=== PATIENT | male | born 1990 | race Caucasian/White ===

== ENCOUNTER 2017-07-11 04:18 | Emergency (ER) | payer OTHER ==
[2017-07-11] MEDS ORDERED: IPRATROPIUM-ALBUTEROL 3 ML NEB INHALATION STA (05:10)
--- NOTE | 2017-07-11 05:13 | ED ---
General Adult HPI - General Chief complaint: Upper Respiratory Infection Stated complaint: Congestion Time Seen by Provider: 07/11/17 04:58 Source: patient, RN notes reviewed Mode of arrival: ambulatory Limitations: no limitations - History of Present Illness Initial comments: Patient is a pleasant 27-year-old male presenting to the emergency Department with cough and congestion. Symptoms have been present for the past 4-5 days. Patient has sinus and chest congestion. Patient does have occasional dry cough. Patient feels somewhat short of breath. Patient is a smoker. Patient does have a headache however has a history of chronic similar headaches. Patient has had several loose stools over the past few days. Patient states he has been able to orally hydrate himself and refuses lab/IV line. - Related Data Home Medications Medication Instructions Recorded Confirmed Gabapentin [Neurontin] 800 mg PO TID 07/11/17 07/11/17 Topiramate [Topamax] 25 mg PO DAILY 07/11/17 07/11/17 Previous Rx's Medication Instructions Recorded Albuterol Inhaler [Ventolin Hfa 2 puff INHALATION Q4HR PRN #1 07/11/17 Inhaler] inhaler Azithromycin [Zithromax Z-pack] 250 mg PO DIRECTED #6 tab 07/11/17 predniSONE 20 mg PO BID #10 tab 07/11/17 Allergies Allergy/AdvReac Type Severity Reaction Status Date / Time dextroamphetamine sulfate AdvReac Hallucinati Verified 12/29/15 14:19 [From Dexedrine] ons Review of Systems ROS Statement: Those systems with pertinent positive or pertinent negative responses have been documented in the HPI. ROS Other: All systems not noted in ROS Statement are negative. Constitutional: Denies: fever Eyes: Denies: eye pain ENT: Reports: congestion. Denies: ear pain Respiratory: Reports: cough, dyspnea Cardiovascular: Denies: chest pain Endocrine: Denies: fatigue Gastrointestinal: Denies: abdominal pain Genitourinary: Denies: urgency Musculoskeletal: Denies: back pain Skin: Denies: rash Neurological: Denies: weakness Past Medical History Past Medical History: No Reported History Additional Past Medical History / Comment(s): cardiac arrhythmia status post cardiac ablation in 2011 History of Any Multi-Drug Resistant Organisms: None Reported Past Surgical History: Hernia Repair Additional Past Surgical History / Comment(s): loop recorder placed, heart catheterization, cardiac ablation with Dr. Bhandari in 2012, extraction of impacted teeth, ORIF right hand third metacarpal phalangeal joint fracture. Past Anesthesia/Blood Transfusion Reactions: No Reported Reaction Past Psychological History: ADD/ADHD, Anxiety, Depression Smoking Status: Current every day smoker Past Alcohol Use History: None Reported Past Drug Use History: Marijuana - Past Family History Father Additional Family Medical History / Comment(s): father is 53 years of age and has basal cell skin cancer. Mother Additional Family Medical History / Comment(s): mother is 51 years of age and has problems with anxiety and chronic back pain. Brother(s) Additional Family Medical History / Comment(s): patient has 1 brother and 1 sister with no major medical problems. General Exam Limitations: no limitations General appearance: alert, in no apparent distress Head exam: Present: atraumatic Eye exam: Present: normal appearance, PERRL ENT exam: Present: normal oropharynx Neck exam: Present: normal inspection Respiratory exam: Present: wheezes. Absent: respiratory distress Cardiovascular Exam: Present: regular rate, normal rhythm GI/Abdominal exam: Present: soft. Absent: tenderness Extremities exam: Present: normal inspection. Absent: pedal edema, calf tenderness Neurological exam: Present: alert Psychiatric exam: Present: normal affect, normal mood Skin exam: Present: normal color Course Vital Signs 07/11/17 07/11/17 07/11/17 04:23 05:22 05:32 Temperature 96.9 F L Pulse Rate 95 92 96 Respiratory 18 Rate Blood Pressure 132/87 O2 Sat by Pulse 98 Oximetry 07/11/17 05:51 Temperature 98.0 F Pulse Rate 88 Respiratory 16 Rate Blood Pressure 142/64 O2 Sat by Pulse 100 Oximetry Medical Decision Making - Medical Decision Making Patient was reexamined and does feel somewhat better. Patient has some continued wheezing. Patient does not want another breathing treatment and does request discharge. - Radiology Data Radiology results: image reviewed (Chest x-ray shows no acute process) Disposition Clinical Impression: Asthmatic bronchitis Disposition: HOME SELF-CARE Condition: Stable Instructions: Acute Bronchitis (ED), Wheezing (ED) Additional Instructions: Please follow-up with primary care physician in the next day or 2 for recheck. Return for difficulty breathing, fevers, worsening symptoms or other concerns. Prescriptions: Albuterol Inhaler [Ventolin Hfa Inhaler] 2 puff INHALATION Q4HR PRN #1 inhaler PRN Reason: Dyspnea Azithromycin [Zithromax Z-pack] 250 mg PO DIRECTED #6 tab predniSONE 20 mg PO BID #10 tab Referrals: Tj Hernandez MD [Primary Care Provider] - 1-2 days Time of Disposition: 06:09
--- NOTE | 2017-07-11 05:23 | XR ---
EXAM: XR Chest, 2 Views CLINICAL HISTORY: Reason: cough TECHNIQUE: Frontal and lateral views of the chest. COMPARISON: No relevant prior studies available. FINDINGS: Lungs: Unremarkable. No consolidation. Pleural space: Unremarkable. No pneumothorax. Heart: Unremarkable. No cardiomegaly. Mediastinum: Unremarkable. Bones/joints: Unremarkable. Tubes, lines and devices: Loop recorder redemonstrated. IMPRESSION: No acute findings.
[2017-07-11 05:52] VITALS: BP 142/64; PULSE 88; RESP 16; TEMP 98
== END 2017-07-11 06:18 | disposition home or self-care (01) ==
LOC: EC 04:18
DX: J45.909 Unspecified asthma, uncomplicated (principal); R51 Headache; F41.9 Anxiety disorder, unspecified; F17.200 Nicotine dependence, unspecified, uncomplicated; Z79.899 Other long term (current) drug therapy; Z88.8 Allergy status to other drugs, medicaments and biological substances
CPT/HCPCS: 71020; 94640; 99283

== ENCOUNTER 2017-09-21 16:27 | Emergency (ER) | payer OTHER ==
--- NOTE | 2017-09-21 16:51 | ED ---
General Adult HPI - General Chief complaint: Seizure Stated complaint: Seizure Time Seen by Provider: 09/21/17 16:29 Source: patient, family, EMS, RN notes reviewed, old records reviewed Mode of arrival: EMS Limitations: no limitations - History of Present Illness Initial comments: Complaint history of present illness a 27-year-old male here with his significant other. The patient was brought emergency room by ambulance after having a seizure lasted approximately 3 minutes, it was tonic-clonic type seizure as witnessed by his significant other. The patient has had one other seizure prior to this. The patient did take pain medication i.e. tramadol today for chronic back pain. Is also been established that he was taking tramadol on his first seizure a year ago. Advised not to take any tramadol as it appears to be lowering his threshold for seizures. - Related Data Home Medications Medication Instructions Recorded Confirmed Gabapentin [Neurontin] 800 mg PO QID 07/11/17 09/21/17 traMADol HCL [Ultram] 50 mg PO Q6HR PRN 09/21/17 09/21/17 Allergies Allergy/AdvReac Type Severity Reaction Status Date / Time dextroamphetamine sulfate AdvReac Hallucinati Verified 09/21/17 17:07 [From Dexedrine] ons Review of Systems ROS Statement: Those systems with pertinent positive or pertinent negative responses have been documented in the HPI. Review of systems no visual acuity changes no headache at this time the chest pain shows breath GI/ problems. All systems reviewed were within normal limits. Past medical problems significant for seizure. One time prior to this. At that time he also was taking tramadol for chronic back pain. The patient has had a history of cardiac anomaly with cardiac arrhythmia and cardiac ablation with good results. Otherwise no other surgeries include right hand surgery. Family history grandfather had lung cancer. He has ALLERGIES to Dexadrine. He does smoke strings alcohol. ROS Other: All systems not noted in ROS Statement are negative. Past Medical History Past Medical History: Seizure Disorder Additional Past Medical History / Comment(s): cardiac arrhythmia status post cardiac ablation in 2011 History of Any Multi-Drug Resistant Organisms: None Reported Past Surgical History: Hernia Repair Additional Past Surgical History / Comment(s): loop recorder placed, heart catheterization, cardiac ablation with Dr. Bhandari in 2012, extraction of impacted teeth, ORIF right hand third metacarpal phalangeal joint fracture. Past Anesthesia/Blood Transfusion Reactions: No Reported Reaction Past Psychological History: ADD/ADHD, Anxiety, Depression Smoking Status: Current every day smoker Past Alcohol Use History: Daily Past Drug Use History: Marijuana - Past Family History Father Additional Family Medical History / Comment(s): father is 53 years of age and has basal cell skin cancer. Mother Additional Family Medical History / Comment(s): mother is 51 years of age and has problems with anxiety and chronic back pain. Brother(s) Additional Family Medical History / Comment(s): patient has 1 brother and 1 sister with no major medical problems. General Exam - General Exam Comments Initial Comments: General: The patient is awake and alert, in no distress, and does not appear acutely ill. Patient had a seizure just prior to coming to emergency room. Transferred here via EMS. Currently alert and oriented. The patient had taken several tramadol today because of his chronic back pain. Vital signs temperature 98.2 pulse 94 respiratory rate 18 pulse ox 96% room air blood pressure 147/91 Eye: Pupils are equal, round and reactive to light, extra-ocular movements are intact ; there is normal conjunctiva bilaterally. No signs of icterus. Ears, nose, mouth and throat: There are moist mucous membranes and no oral lesions. As a small bump on the right forehead that occurred 1 week ago after bumping into a wall. No loss of consciousness at that time. Neck: The neck is supple, there is no tenderness. Cardiovascular: There is a regular rate and rhythm. No murmur, rub or gallop is appreciated. Respiratory: Lungs are clear to auscultation, respirations are non-labored, breath sounds are equal. No wheezes, stridor, rales, or rhonchi. Gastrointestinal: Soft, non-distended, non-tender abdomen without masses or organomegaly noted. There is no rebound or guarding present. No CVA tenderness. Bowel sounds are unremarkable. Back: No back pain Musculoskeletal: Normal ROM, no tenderness, There is no pedal edema. There is no calf tenderness or swelling. Sensation intact. Neurological: CN II-XII intact, There are no obvious motor or sensory deficits. Coordination appears grossly intact. Speech is normal. No focal or lateralizing findings Skin: Skin is warm and dry and no rashes or lesions are noted. Psychiatric: Cooperative, appropriate mood & affect, normal judgment. History of bipolar disorder Limitations: no limitations Course Vital Signs 09/21/17 09/21/17 16:29 18:33 Temperature 98.2 F 98.1 F Pulse Rate 94 64 Respiratory 18 17 Rate Blood Pressure 147/91 129/77 O2 Sat by Pulse 96 99 Oximetry EKG Findings - EKG Comments: EKG Findings:: KG was done and reviewed at 1654 showing normal sinus rhythm no acute ST elevation no ectopy no ischemic changes. Rate 87. Eye was 138 QRS 106 QT [address] Wells Medical Decision Making - Medical Decision Making An EKG done which showed normal sinus rhythm rate 87. Patient remains alert emergency room neurologically intact no focal or lateralizing findings. We did discuss his not taking tramadol ever again because of its propensity for lowering threshold people might be prone to seizures. The patient was advised he cannot drive for 6 months, needs to be cleared by his family doctor or neurologist. Show white count of 8 hemoglobin 15 hematocrit 44, potassium 3.9. BUN 13 creatinine 0.8 the GFR greater than 60. Glucose 89. Breast discomfort while here. No changes. We discussed him not using tramadol in the future or other medications at lowering his threshold have seizures. Again reminded no driving for 6 months until cleared by his doctors. - Lab Data Result diagrams: 09/21/17 17:32 09/21/17 17:32 Lab Results 09/21/17 09/21/17 Range/Units 17:32 17:32 WBC 8.0 (3.8-10.6) k/uL RBC 4.75 (4.30-5.90) m/uL Hgb 15.0 (13.0-17.5) gm/dL Hct 44.1 (39.0-53.0) % MCV 92.9 (80.0-100.0) fL MCH 31.5 (25.0-35.0) pg MCHC 33.9 (31.0-37.0) g/dL RDW 14.3 (11.5-15.5) % Plt Count 177 (150-450) k/uL Neutrophils % 67 % Lymphocytes % 20 % Monocytes % 7 % Eosinophils % 5 % Basophils % 1 % Neutrophils # 5.4 (1.3-7.7) k/uL Lymphocytes # 1.6 (1.0-4.8) k/uL Monocytes # 0.6 (0-1.0) k/uL Eosinophils # 0.4 (0-0.7) k/uL Basophils # 0.1 (0-0.2) k/uL Sodium 136 L (137-145) mmol/L Potassium 3.9 (3.5-5.1) mmol/L Chloride 104 (98-107) mmol/L Carbon Dioxide 22 (22-30) mmol/L Anion Gap 10 mmol/L BUN 13 (9-20) mg/dL Creatinine 0.80 (0.66-1.25) mg/dL Est GFR (MDRD) Af Amer >60 (>60 ml/min/1.73 sqM) Est GFR (MDRD) Non-Af >60 (>60 ml/min/1.73 sqM) Glucose 89 (74-99) mg/dL Calcium 9.1 (8.4-10.2) mg/dL Total Bilirubin 0.3 (0.2-1.3) mg/dL AST 31 (17-59) U/L ALT 35 (21-72) U/L Alkaline Phosphatase 68 (38-126) U/L Total Protein 6.7 (6.3-8.2) g/dL Albumin 4.4 (3.5-5.0) g/dL Disposition Clinical Impression: Seizure Disposition: HOME SELF-CARE Condition: Stable Instructions: Nonepileptic Seizures (ED) Additional Instructions: Not taking tramadol or any medications that lower your threshold to have a seizure. Follow-up with your family physician. Do not drive for 6 months until cleared Referrals: Tj Hernandez MD [Primary Care Provider] - 1-2 days Time of Disposition: 19:29
[2017-09-21 17:42] LABS: Basophils # (A) 0.1 k/uL (0-0.2); Basophils % (A) 1 %; CH 32.1; CHCM 34.7; Eosinophils # (A) 0.4 k/uL (0-0.7); Eosinophils % (A) 5 %; HCT 44.1 % (39.0-53.0); HDW 2.31; Luc # (Auto) 0.09; Luc % (Auto) 1; Lymphocytes # (A) 1.6 k/uL (1.0-4.8); Lymphocytes % (A) 20 %; MCH 31.5 pg (25.0-35.0); MCHC 33.9 g/dL (31.0-37.0); MCV 92.9 fL (80.0-100.0); Mean Platelet Volume 7.8; Monocytes # (A) 0.6 k/uL (0-1.0); Monocytes % (A) 7 %; Neutrophils # (A) 5.4 k/uL (1.3-7.7); Neutrophils % (A) 67 %; RBC 4.75 m/uL (4.30-5.90); RDW 14.3 % (11.5-15.5); WBC (Perox) 8.41
[2017-09-21 18:01] LABS: ALT 35 U/L (21-72); AST 31 U/L (17-59); Alkaline Phosphatase 68 U/L (38-126); Anion Gap 10 mmol/L; Blood Urea Nitrogen 13 mg/dL (9-20); Calcium 9.1 mg/dL (8.4-10.2); Carbon Dioxide 22 mmol/L (22-30); Chloride 104 mmol/L (98-107); Glucose 89 mg/dL (74-99); Non-African American GFR(MDRD) >60 (>60 ml/min/1.73 sqM); Potassium 3.9 mmol/L (3.5-5.1); Sodium 136 mmol/L (137-145); Total Bilirubin 0.3 mg/dL (0.2-1.3); Total Protein 6.7 g/dL (6.3-8.2)
[2017-09-21 19:30] VITALS: BP 122/84; PULSE 63; RESP 18; TEMP 98.5
== END 2017-09-21 19:41 | disposition home or self-care (01) ==
LOC: EC 16:27
DX: G40.909 Epilepsy, unspecified, not intractable, without status epilepticus (principal); F41.9 Anxiety disorder, unspecified; F17.200 Nicotine dependence, unspecified, uncomplicated; Z79.899 Other long term (current) drug therapy; Z88.8 Allergy status to other drugs, medicaments and biological substances
CPT/HCPCS: 36415; 80053; 85025; 93005; 99285

== ENCOUNTER 2019-11-12 12:24 | Emergency (ER) | payer SELFPAY ==
[2019-11-12 12:33] VITALS: RESP 20; TEMP 97.8
[2019-11-12 13:07] LABS: Basophils % (A) 0 %; Eosinophils # (A) 0.1 k/uL (0-0.7); Eosinophils % (A) 2 %; HCT 44.7 % (39.0-53.0); HGB 14.7 gm/dL (13.0-17.5); Lymphocytes # (A) 1.8 k/uL (1.0-4.8); Lymphocytes % (A) 30 %; MCV 94.1 fL (80.0-100.0); Mean Platelet Volume 9.1; Monocytes # (A) 0.4 k/uL (0-1.0); Monocytes % (A) 6 %; Neutrophils # (A) 3.6 k/uL (1.3-7.7); Neutrophils % (A) 60 %; Platelet Count 159 k/uL (150-450); RBC 4.75 m/uL (4.30-5.90); RDW 12.7 % (11.5-15.5); WBC 6.1 k/uL (3.8-10.6)
--- NOTE | 2019-11-12 13:07 | ED ---
General Adult HPI - General Chief complaint: Seizure Stated complaint: seizure Time Seen by Provider: 11/12/19 12:25 Source: patient, EMS, RN notes reviewed, old records reviewed Mode of arrival: EMS Limitations: no limitations - History of Present Illness Initial comments: This is a 29-year-old male who presents emergency Department with a past medical history significant for seizures. Patient states he was in the backseat of a car when he was told later that he had a seizure. Patient states she's had 3 seizures in the last 2 years. Patient states they've never found a cause per patient states he does not follow up with a neurologist his primary medical care doctor has him on Neurontin. Patient denies any recent fever chills cough or illness. Patient denies any nausea vomiting. Patient states currently he has no symptoms whatsoever he feels back to his baseline. Patient denies any head trauma recently. Patient denies any illegal drug use. Patient has no complaint currently according to EMS he was postictal when he arrived. - Related Data Home Medications Medication Instructions Recorded Confirmed Gabapentin [Neurontin] 800 mg PO TID 07/11/17 11/12/19 Butalb/Asprin/Caff 50-325-40Mg 1 cap PO TID PRN 11/12/19 11/12/19 [Fiorinal 50-325-40 MG] Allergies Allergy/AdvReac Type Severity Reaction Status Date / Time dextroamphetamine sulfate AdvReac Hallucinati Verified 11/12/19 13:35 [From Dexedrine] ons Review of Systems ROS Statement: Those systems with pertinent positive or pertinent negative responses have been documented in the HPI. ROS Other: All systems not noted in ROS Statement are negative. Past Medical History Past Medical History: Seizure Disorder Additional Past Medical History / Comment(s): cardiac arrhythmia status post cardiac ablation in 2012 History of Any Multi-Drug Resistant Organisms: None Reported Past Surgical History: Hernia Repair Additional Past Surgical History / Comment(s): loop recorder placed, heart catheterization, cardiac ablation with Dr. Bhandari in 2012, extraction of impacted teeth, ORIF right hand third metacarpal phalangeal joint fracture. Past Anesthesia/Blood Transfusion Reactions: No Reported Reaction Past Psychological History: ADD/ADHD, Anxiety, Depression Smoking Status: Current every day smoker Past Alcohol Use History: Daily Past Drug Use History: None Reported - Past Family History Father Additional Family Medical History / Comment(s): father is 53 years of age and has basal cell skin cancer. Mother Additional Family Medical History / Comment(s): mother is 51 years of age and has problems with anxiety and chronic back pain. Brother(s) Additional Family Medical History / Comment(s): patient has 1 brother and 1 sister with no major medical problems. General Exam - General Exam Comments Initial Comments: GENERAL: Patient is well-developed and well-nourished. Patient is nontoxic and well- hydrated and is in mild distress. ENT: Neck is soft and supple. No significant lymphadenopathy is noted. Oropharynx is clear. Moist mucous membranes. EYES: The sclera were anicteric and conjunctiva were pink and moist. Extraocular movements were intact and pupils were equal round and reactive to light. Eyelids were unremarkable. PULMONARY: Unlabored respirations. Good breath sounds bilaterally. No audible rales rhonchi or wheezing was noted. CARDIOVASCULAR: There is a regular rate and rhythm without any murmurs gallops or rubs. ABDOMEN: Soft and nontender with normal bowel sounds. SKIN: Skin is clear with no lesions or rashes and otherwise unremarkable. NEUROLOGIC: Patient is alert and oriented x3. Cranial nerves II through XII are grossly intact. Motor and sensory are also intact. Normal speech, volume and content. Symmetrical smile. MUSCULOSKELETAL: Normal extremities with adequate strength and full range of motion. LYMPHATICS: No significant lymphadenopathy is noted PSYCHIATRIC: Normal psychiatric evaluation. Limitations: no limitations Course Vital Signs 11/12/19 12:29 Temperature 97.8 F Pulse Rate 104 H Respiratory 20 Rate Blood Pressure 135/86 O2 Sat by Pulse 99 Oximetry Medical Decision Making - Medical Decision Making Patient remained at his baseline and had no more seizures in the emergency department. - Lab Data Result diagrams: 11/12/19 12:39 11/12/19 12:39 Lab Results 11/12/19 11/12/19 Range/Units 12:39 12:39 WBC 6.1 (3.8-10.6) k/uL RBC 4.75 (4.30-5.90) m/uL Hgb 14.7 (13.0-17.5) gm/dL Hct 44.7 (39.0-53.0) % MCV 94.1 (80.0-100.0) fL MCH 31.0 (25.0-35.0) pg MCHC 33.0 (31.0-37.0) g/dL RDW 12.7 (11.5-15.5) % Plt Count 159 (150-450) k/uL Neutrophils % 60 % Lymphocytes % 30 % Monocytes % 6 % Eosinophils % 2 % Basophils % 0 % Neutrophils # 3.6 (1.3-7.7) k/uL Lymphocytes # 1.8 (1.0-4.8) k/uL Monocytes # 0.4 (0-1.0) k/uL Eosinophils # 0.1 (0-0.7) k/uL Basophils # 0.0 (0-0.2) k/uL Sodium 139 (137-145) mmol/L Potassium 4.1 (3.5-5.1) mmol/L Chloride 104 (98-107) mmol/L Carbon Dioxide 19 L (22-30) mmol/L Anion Gap 16 mmol/L BUN 8 L (9-20) mg/dL Creatinine 0.78 (0.66-1.25) mg/dL Est GFR (CKD-EPI)AfAm >90 (>60 ml/min/1.73 sqM) Est GFR (CKD-EPI)NonAf >90 (>60 ml/min/1.73 sqM) Glucose 118 H (74-99) mg/dL Calcium 9.2 (8.4-10.2) mg/dL Total Bilirubin 0.5 (0.2-1.3) mg/dL AST 28 (17-59) U/L ALT 22 (4-49) U/L Alkaline Phosphatase 59 (38-126) U/L Total Protein 6.5 (6.3-8.2) g/dL Albumin 4.4 (3.5-5.0) g/dL Disposition Clinical Impression: Generalized seizure Disposition: HOME SELF-CARE Instructions (If sedation given, give patient instructions): Recurrent Seizures in Adults (ED) Additional Instructions: Patient should follow-up with a neurologist. Is patient prescribed a controlled substance at d/c from ED?: No Referrals: Tj Hernandez MD [Primary Care Provider] - 1-2 days Time of Disposition: 13:41
[2019-11-12 13:16] LABS: AST 28 U/L (17-59); African American GFR (CKD) >90 (>60 ml/min/1.73 sqM); Albumin 4.4 g/dL (3.5-5.0); Alkaline Phosphatase 59 U/L (38-126); Anion Gap 16 mmol/L; Blood Urea Nitrogen 8 mg/dL (9-20); Calcium 9.2 mg/dL (8.4-10.2); Carbon Dioxide 19 mmol/L (22-30); Chloride 104 mmol/L (98-107); Glucose 118 mg/dL (74-99); Non-African American GFR(CKD) >90 (>60 ml/min/1.73 sqM); Potassium 4.1 mmol/L (3.5-5.1); Sodium 139 mmol/L (137-145); Total Bilirubin 0.5 mg/dL (0.2-1.3); Total Protein 6.5 g/dL (6.3-8.2)
[2019-11-12 13:22] LABS: ALT 22 U/L (4-49)
[2019-11-12 14:13] VITALS: BP 128/75; PULSE 92
== END 2019-11-12 14:16 | disposition home or self-care (01) ==
LOC: EC 12:24
DX: G40.909 Epilepsy, unspecified, not intractable, without status epilepticus (principal); F17.200 Nicotine dependence, unspecified, uncomplicated; Z79.899 Other long term (current) drug therapy; Z88.8 Allergy status to other drugs, medicaments and biological substances
CPT/HCPCS: 36415; 80053; 85025; 99284

== ENCOUNTER 2020-07-26 23:32 | Inpatient (IN) | payer BC, OTHER ==
[2020-07-26] MEDS ORDERED: NALOXONE 0.4 MG/ML 1 ML VIAL IVP STA (23:34)
--- NOTE | 2020-07-26 23:43 | ED ---
Overdose HPI - General Stated Complaint: poss Overdose Time Seen by Provider: 07/26/20 23:34 - History of Present Illness Initial Comments: Cameron is a 30-year-old male with extensive history of drug use, alcohol use in trouble with the law. The patient presents the ER today as an overdose. Father reports that the patient was previously incarcerated and theoretically had not been using drugs or alcohol, states that he got out of [facility] months ago. He from his and 3 months ago began drinking heavily and using Kratom. Father reports that today he was called and the patient was at a gas station, had apparently been drinking heavily. Father reports that by the time he got to the patient the patient was minimally responsive snoring. Cannot provide much history. Father brought him immediately to the hospital. - Related Data Home Medications Medication Instructions Recorded Confirmed Gabapentin [Neurontin] 800 mg PO TID 07/11/17 11/12/19 Butalb/Asprin/Caff 50-325-40Mg 1 cap PO TID PRN 11/12/19 11/12/19 [Fiorinal 50-325-40 MG] Allergies Allergy/AdvReac Type Severity Reaction Status Date / Time dextroamphetamine sulfate AdvReac Hallucinati Verified 11/12/19 13:35 [From Dexedrine] ons Review of Systems ROS Statement: Those systems with pertinent positive or pertinent negative responses have been documented in the HPI. ROS Other: All systems not noted in ROS Statement are negative. Past Medical History Past Medical History: Seizure Disorder Additional Past Medical History / Comment(s): cardiac arrhythmia status post cardiac ablation in 2011 History of Any Multi-Drug Resistant Organisms: None Reported Past Surgical History: Hernia Repair Additional Past Surgical History / Comment(s): loop recorder placed, heart catheterization, cardiac ablation with Dr. Bhandari in 2012, extraction of impacted teeth, ORIF right hand third metacarpal phalangeal joint fracture. Past Anesthesia/Blood Transfusion Reactions: No Reported Reaction Past Psychological History: ADD/ADHD, Anxiety, Depression Past Alcohol Use History: Daily Past Drug Use History: None Reported - Past Family History Father Additional Family Medical History / Comment(s): father is 53 years of age and naranjo s basal cell skin cancer. Mother Additional Family Medical History / Comment(s): mother is 51 years of age and has problems with anxiety and chronic back pain. Brother(s) Additional Family Medical History / Comment(s): patient has 1 brother and 1 sister with no major medical problems. General Exam - General Exam Comments Initial Comments: Physical Exam GENERAL: Minimally responsive to painful stimuli Non verbal HENT: Normocephalic, Atraumatic. EYES: PERRL, EOMI Puupils 3mm reactive PULMONARY: Respiratory depression Unlabored respirations Expiratory wheezing CARDIOVASCULAR: There is a regular rate and rhythm without any murmurs gallops or rubs. Loop recorder in place in left chest wall ABDOMEN: Soft and nontender with normal bowel sounds. SKIN: Skin is clear with no lesions or rashes and otherwise unremarkable. : Deferred NEUROLOGIC: Alert to self MUSCULOSKELETAL: No obvious deformity PSYCHIATRIC: Unable to assess Course Vital Signs 07/26/20 07/26/20 07/27/20 23:33 23:37 00:27 Temperature 97.4 F L Pulse Rate 88 82 Respiratory 14 14 18 Rate Blood Pressure 123/88 117/73 O2 Sat by Pulse 98 92 L Oximetry 07/27/20 01:04 Temperature Pulse Rate 77 Respiratory 16 Rate Blood Pressure 100/70 O2 Sat by Pulse 93 L Oximetry Procedures - Bates Protocol (Time Out) Procedure Performed:: intubation Performing Provider: Ruth Guevara Nurse: Ruth Fritz Timeout Date: 07/27/20 Timeout Time: 01:15 Patient Identification (2 identifiers required): Chart, Arm Band Final Confirmation: Procedure, Patient Position - Intubation Sedative: Etomidate Paralytic: Rocuronium Laryngoscope: Martinez Size: 4 ET Tube Size: 8 ET Tube Uncuffed: No Tube Secured Depth (cm): 22 Tube Secured Location: teeth Tube Placement Confirmation: visualized tube passing through cords, equal breath sounds bilaterally, no breath sounds over epigastrium, confirmation by capnometry Patient Tolerated Procedure: well, no complications Intubation Complications: none Medical Decision Making - Medical Decision Making The patient was seen and evaluated upon arrival the emergency department Patient was minimally responsive with the mild respiratory depression, was given Narcan with no improvement Patient placed on supplemental oxygen labs EKG ordered EKG is nonischemic no signs of arrhythmia Labs with no significant abnormalities urine drug screen was only marijuana noted as well as significantly elevated alcohol level Patient care was discussed with poison control who recommends monitoring her respiratory status Decision was made to intubate the patient due to persistent respiratory depression concern for decompensation Patient care was discussed with Dr. Soriano who accepts admission Patient care was discussed with Dr. Steven who accepts the patient to the ICU for overdose requiring intubation - Lab Data Result diagrams: 07/26/20 23:40 07/26/20 23:40 Lab Results 07/26/20 07/26/20 07/26/20 Range/Units 23:40 23:40 23:40 WBC 6.7 (3.8-10.6) k/uL RBC 4.63 (4.30-5.90) m/uL Hgb 14.5 (13.0-17.5) gm/dL Hct 44.0 (39.0-53.0) % MCV 94.9 (80.0-100.0) fL MCH 31.2 (25.0-35.0) pg MCHC 32.9 (31.0-37.0) g/dL RDW 13.5 (11.5-15.5) % Plt Count 186 (150-450) k/uL Neutrophils % 56 % Lymphocytes % 33 % Monocytes % 5 % Eosinophils % 3 % Basophils % 1 % Neutrophils # 3.7 (1.3-7.7) k/uL Lymphocytes # 2.2 (1.0-4.8) k/uL Monocytes # 0.3 (0-1.0) k/uL Eosinophils # 0.2 (0-0.7) k/uL Basophils # 0.1 (0-0.2) k/uL Sodium 143 (137-145) mmol/L Potassium 4.0 (3.5-5.1) mmol/L Chloride 110 H (98-107) mmol/L Carbon Dioxide 26 (22-30) mmol/L Anion Gap 7 mmol/L BUN 10 (9-20) mg/dL Creatinine 0.89 (0.66-1.25) mg/dL Est GFR (CKD-EPI)AfAm >90 (>60 ml/min/1.73 sqM) Est GFR (CKD-EPI)NonAf >90 (>60 ml/min/1.73 sqM) Glucose 105 H (74-99) mg/dL Calcium 8.4 (8.4-10.2) mg/dL Total Bilirubin 0.3 (0.2-1.3) mg/dL AST 34 (17-59) U/L ALT 24 (4-49) U/L Alkaline Phosphatase 72 (38-126) U/L Total Protein 6.4 (6.3-8.2) g/dL Albumin 4.4 (3.5-5.0) g/dL Salicylates <1.0 mg/dL Urine Opiates Screen Not Detected (NotDetected) Ur Oxycodone Screen Not Detected (NotDetected) Urine Methadone Screen Not Detected (NotDetected) Ur Propoxyphene Screen Not Detected (NotDetected) Acetaminophen <10.0 ug/mL Ur Barbiturates Screen Not Detected (NotDetected) U Tricyclic Antidepress Not Detected (NotDetected) Ur Phencyclidine Scrn Not Detected (NotDetected) Ur Amphetamines Screen Not Detected (NotDetected) U Methamphetamines Scrn Not Detected (NotDetected) U Benzodiazepines Scrn Not Detected (NotDetected) Urine Cocaine Screen Not Detected (NotDetected) U Marijuana (THC) Screen Detected H (NotDetected) Serum Alcohol 244 H* mg/dL Critical Care Time Critical Care Time: Yes Total Critical Care Time: 30 Critical Care Time: Critical Care Time 30 min Critical care time was exclusive of separately billable procedures and treating other patients and teaching time. Critical care was necessary to treat or prevent imminent or life-threatening deterioration. Given the critical condition in which the patient arrived, the patient was immediately assessed by myself and the nurse, and cardiac monitoring initiated due to the potential for rapid decompensation of the patient's clinical condition. During the course of the patients stay, I spent a considerable amount of time at the bedside performing serial re-evaluations of the patient's hemodynamic and clinical status because of the recognized potential threat to life or limb in this condition. I then had a chance to review not only all of the available current laboratory and radiographic studies obtained today, but I also reviewed old records available to me at the time. Additionally, any ancillary information available including extract operator records were reviewed. Sequential vital signs were obtained. Disposition Clinical Impression: Polysubstance overdose, Respiratory depression Disposition: ADMITTED IP TO THIS [facility] Condition: Critical Is patient prescribed a controlled substance at d/c from ED?: No Referrals: None,Stated [Primary Care Provider] - 1-2 days
[2020-07-26 23:51] LABS: Basophils # (A) 0.1 k/uL (0-0.2); Basophils % (A) 1 %; Eosinophils # (A) 0.2 k/uL (0-0.7); Eosinophils % (A) 3 %; HGB 14.5 gm/dL (13.0-17.5); Lymphocytes # (A) 2.2 k/uL (1.0-4.8); Lymphocytes % (A) 33 %; MCH 31.2 pg (25.0-35.0); MCHC 32.9 g/dL (31.0-37.0); MCV 94.9 fL (80.0-100.0); Mean Platelet Volume 7.1; Monocytes # (A) 0.3 k/uL (0-1.0); Monocytes % (A) 5 %; Neutrophils # (A) 3.7 k/uL (1.3-7.7); Neutrophils % (A) 56 %; Platelet Count 186 k/uL (150-450); RBC 4.63 m/uL (4.30-5.90); RDW 13.5 % (11.5-15.5); WBC 6.7 k/uL (3.8-10.6)
[2020-07-27 00:01] LABS: ALT 24 U/L (4-49); AST 34 U/L (17-59); Acetaminophen <10.0 ug/mL; African American GFR (CKD) >90 (>60 ml/min/1.73 sqM); Albumin 4.4 g/dL (3.5-5.0); Amphetamine Screen,Urine Not Detected (NotDetected); Anion Gap 7 mmol/L; Benzodiazepines Screen,Urine Not Detected (NotDetected); Blood Urea Nitrogen 10 mg/dL (9-20); Calcium 8.4 mg/dL (8.4-10.2); Carbon Dioxide 26 mmol/L (22-30); Chloride 110 mmol/L (98-107); Cocaine Screen,Urine Not Detected (NotDetected); Non-African American GFR(CKD) >90 (>60 ml/min/1.73 sqM); Opiate Screen,Urine Not Detected (NotDetected); Phencyclidine Screen,Urine Not Detected (NotDetected); Sodium 143 mmol/L (137-145); Total Bilirubin 0.3 mg/dL (0.2-1.3); Total Protein 6.4 g/dL (6.3-8.2); Urn Cannabinoid Scrn Detected (NotDetected)
[2020-07-27 00:02] LABS: Barbiturate Screen,Urine Not Detected (NotDetected); Methadone Screen, Urine Not Detected (NotDetected); Oxycodone Screen, Urine Not Detected (NotDetected); Tricyclic Antidepressant,Urine Not Detected (NotDetected)
[2020-07-27 00:12] LABS: Alkaline Phosphatase 72 U/L (38-126); Glucose 105 mg/dL (74-99); Salicylate <1.0 mg/dL
[2020-07-27 00:16] LABS: Alcohol 244 mg/dL
[2020-07-27] MEDS ORDERED: ETOMIDATE 2 MG/ML 10 ML VIAL IVP STA (00:52)
[2020-07-27] MEDS ORDERED: MIDAZOLAM 1 MG/ML 5 ML VIAL IV PRN (00:52)
[2020-07-27] MEDS ORDERED: ROCURONIUM 10 MG/ML (5 ML VIAL) IV ONE (00:52)
[2020-07-27] MEDS ORDERED: fentaNYL (PF) 1,000 MCG in SODIUM CHLORIDE 0.9% 80 ML IV SCH (01:00)
[2020-07-27] MEDS ORDERED: ALBUTEROL NEBULIZED 2.5 MG/3 ML INHALATION STA (01:16)
[2020-07-27] MEDS ORDERED: NALOXONE 0.4 MG/ML 1 ML VIAL IV PRN (01:21)
[2020-07-27] MEDS ORDERED: SODIUM CHLORIDE 0.9% 1,000 ML IV SCH (01:30)
--- NOTE | 2020-07-27 01:36 | XR ---
EXAMINATION TYPE: XR chest 1V DATE OF EXAM: 07/27/2020 COMPARISON: 07/11/2017 HISTORY: Intubation TECHNIQUE: Single view FINDINGS: Endotracheal tube is 3.5 cm from the jaylin. There is nasogastric tube in the gastric fundu s. Lungs are clear of consolidation. There is no heart failure. Heart size is normal. IMPRESSION: No active cardiopulmonary disease. Normal heart. No adverse change.
[2020-07-27] MEDS ORDERED: MIDAZOLAM 1 MG/ML 5 ML VIAL IV STA (02:05)
[2020-07-27 02:12] LABS: ABG Base Excess -1.8 mmol/L; ABG HCO3 25 mmol/L (21-25); ABG Oxygen Saturation 99.4 % (94-97); ABG PCO2 57 mmHg (35-45); ABG PH 7.26 (7.35-7.45); ABG PO2 >400 mmHg (83-108); ABG TCO2 27 mmol/L (19-24); Allen Test Performed? Yes
[2020-07-27] MEDS ORDERED: SODIUM CHLORIDE 0.9% 1,000 ML with MVI, ADULT NO.4 WITH VIT K 10 ML, THIAMINE 100 MG, F... IV ONE ×4 (03:17)
--- NOTE | 2020-07-27 03:19 | P.HPIM ---
History of Present Illness H&P Date: 07/27/20 The patient is a 30-year-old male with a PMH of EtOH abuse and polysubstance abuse who was brought into the ED via EMS after an overdose. History obtained from the ED RN and the chart since patient intubated at time of examination. Reportedly, the patient's father picked him up outside of a [employer] after the staff contacted him when the patient was found unconscious. He subsequently called EMS when he found his son minimally responsive. He told the ED staff that the patient had been drinking heavily over the past 3 months after he split from his and one child. He reported the patient has been using Kratom (OTC Supplement) known to have stimulant properties with sedating effects at higher doses. In the emergency room, the patient was lethargic with an EtOH level of 244. He was subsequently intubated. Chest x-ray was unremarkable. Review of Systems ROS unobtainable: due to endotracheal tube Past Medical History Past Medical History: Seizure Disorder Additional Past Medical History / Comment(s): cardiac arrhythmia status post cardiac ablation in 2011 History of Any Multi-Drug Resistant Organisms: None Reported Past Surgical History: Hernia Repair Additional Past Surgical History / Comment(s): loop recorder placed, heart catheterization, cardiac ablation with Dr. Bhandari in 2012, extraction of impacted teeth, ORIF right hand third metacarpal phalangeal joint fracture. Past Anesthesia/Blood Transfusion Reactions: No Reported Reaction Past Psychological History: ADD/ADHD, Anxiety, Depression Past Alcohol Use History: Daily Past Drug Use History: None Reported - Past Family History Father Additional Family Medical History / Comment(s): father is 53 years of age and has basal cell skin cancer. Mother Additional Family Medical History / Comment(s): mother is 51 years of age and has problems with anxiety and chronic back pain. Brother(s) Additional Family Medical History / Comment(s): patient has 1 brother and 1 sister with no major medical problems. Medications and Allergies Home Medications Medication Instructions Recorded Confirmed Type Gabapentin [Neurontin] 800 mg PO TID 07/11/17 11/12/19 History Butalb/Asprin/Caff 50-325-40Mg 1 cap PO TID PRN 11/12/19 11/12/19 History [Fiorinal 50-325-40 MG] Allergies Allergy/AdvReac Type Severity Reaction Status Date / Time dextroamphetamine sulfate AdvReac Hallucinati Verified 11/12/19 13:35 [From Dexedrine] ons Physical Exam Vitals: Vital Signs Temp Pulse Resp BP Pulse Ox 07/27/20 02:15 72 16 104/74 100 07/27/20 01:26 80 07/27/20 01:04 77 16 100/70 93 L 07/27/20 00:27 82 18 117/73 92 L 07/26/20 23:37 14 07/26/20 23:33 97.4 F L 88 14 123/88 98 Intake and Output 07/26/20 07/26/20 07/27/20 14:59 22:59 06:59 Other: Weight 65.771 kg General: Intubated male, disheveled, no distress, appears at stated age, normal weight Derm: no unusual rashes/lesions no unusual ecchymoses, warm, dry Head: atraumatic, normocephalic, symmetric Eyes: anicteric sclera, pupils equal round reactive to light ENT: Nose and ears atraumatic Neck: No thyromegaly, no cervical lymphadenopathy, trachea midline, supple Mouth: no lip lesion Cardiovascular: S1S2 reg, no murmur, positive posterior tibial pulse bilateral, no edema, capillary refill less than 2 seconds Lungs: CTA bilateral, no rhonchi, no rales Abdominal: soft, no appreciable organomegaly Ext: no gross muscle atrophy, no contractures, Neuro: Unable to perform, patient unresponsive to noxious stimuli Results CBC & Chem 7: 07/26/20 23:40 07/26/20 23:40 Labs: Abnormal Lab Results - Last 24 Hours (Table) 07/26/20 07/26/20 07/27/20 Range/Units 23:40 23:40 02:11 ABG pH 7.26 L (7.35-7.45) ABG pCO2 57 H (35-45) mmHg ABG pO2 >400 H (83-108) mmHg ABG Total CO2 27 H (19-24) mmol/L ABG O2 Saturation 99.4 H (94-97) % Chloride 110 H (98-107) mmol/L Glucose 105 H (74-99) mg/dL U Marijuana (THC) Screen Detected H (NotDetected) Serum Alcohol 244 H* mg/dL Assessment and Plan Plan: Altered mental status with hypoxic respiratory failure likely secondary to combination of Kratom overdose and EtOH intoxication -Poison control notified -- recommended continued monitoring with no Kratom antidote currently available -Admitted to medical ICU -Continue with ventilator bundle -Monitor for alcohol withdrawal -Banana bag -Monitor electrolytes levels daily -Obtain EKG -Cardiac monitoring DVT prophylaxis -Heparin subq Anticipated discharge date: 2-[address]: Home A total of 40 minutes was spent on the care of this complex patient more than 50% of the time was spent in counseling and care coordination.
[2020-07-27 03:37] LABS: Glucose,Whole Blood 106 mg/dL (75-99)
[2020-07-27 05:33] LABS: Basophils % (A) 1 %; Eosinophils # (A) 0.1 k/uL (0-0.7); Eosinophils % (A) 3 %; HCT 38.9 % (39.0-53.0); HGB 13.3 gm/dL (13.0-17.5); Lymphocytes % (A) 44 %; MCH 33.2 pg (25.0-35.0); MCHC 34.3 g/dL (31.0-37.0); MCV 96.8 fL (80.0-100.0); Mean Platelet Volume 8.3; Monocytes # (A) 0.3 k/uL (0-1.0); Monocytes % (A) 6 %; Neutrophils % (A) 45 %; Platelet Count 150 k/uL (150-450); RBC 4.02 m/uL (4.30-5.90); RDW 14.3 % (11.5-15.5); WBC 4.5 k/uL (3.8-10.6)
[2020-07-27 05:45] LABS: ALT 19 U/L (4-49); AST 28 U/L (17-59); African American GFR (CKD) >90 (>60 ml/min/1.73 sqM); Albumin 3.5 g/dL (3.5-5.0); Alkaline Phosphatase 57 U/L (38-126); Anion Gap 5 mmol/L; Blood Urea Nitrogen 9 mg/dL (9-20); Calcium 7.5 mg/dL (8.4-10.2); Carbon Dioxide 24 mmol/L (22-30); Chloride 112 mmol/L (98-107); Glucose 93 mg/dL (74-99); Non-African American GFR(CKD) >90 (>60 ml/min/1.73 sqM); Potassium 3.8 mmol/L (3.5-5.1); Sodium 141 mmol/L (137-145); Total Bilirubin 0.2 mg/dL (0.2-1.3); Total Protein 5.3 g/dL (6.3-8.2)
[2020-07-27] MEDS: POTASSIUM CHLORIDE 10 MEQ in WATER FOR INJECTION 1 100ML.BAG IVPB SCH ×2 (05:52→06:53)
[2020-07-27] MEDS ORDERED: DEXTROSE 5%-0.45% NACL 1,000 ML IV SCH (07:30)
[2020-07-27] MEDS: HEPARIN SODIUM,PORCINE 5,000 UNIT/ML 1 ML VIAL SQ SCH ×3 (08:22→22:49)
[2020-07-27] MEDS: FAMOTIDINE 20 MG/2 ML VIAL IV SCH ×2 (08:22→20:31)
[2020-07-27 08:36] LABS: ABG Base Excess -0.8 mmol/L; ABG HCO3 24 mmol/L (21-25); ABG Oxygen Saturation 98.4 % (94-97); ABG PCO2 42 mmHg (35-45); ABG PH 7.38 (7.35-7.45); ABG PO2 136 mmHg (83-108); ABG TCO2 26 mmol/L (19-24); Allen Test Performed? Yes
--- NOTE | 2020-07-27 08:55 | XR ---
EXAMINATION TYPE: XR chest 1V portable DATE OF EXAM: 07/27/2020 COMPARISON: 07/27/2020 INDICATION: Difficulty breathing TECHNIQUE: Single frontal view of the chest is obtained. FINDINGS: The heart size is normal. The pulmonary vasculature is normal. The lungs are clear. Endotracheal tube is present with the tip above the jaylin nasogastric tube transverses the thorax th e tip only the proximal left upper quadrant. This could be advanced. Loop recorder is over the left c hest. IMPRESSION: 1. No acute pulmonary process. 2. Nasogastric tube could be advanced proximally 6 cm
[2020-07-27] MEDS ORDERED: CHLORHEXIDINE GLUCONATE 15 ML CUP MUCOUS MEM SCH (09:00)
--- NOTE | 2020-07-27 10:38 | P.PN ---
Subjective Progress Note Date: 07/27/20 Principal diagnosis: Alcohol intoxication and polysubstance abuse Patient was awake and alert. He was extubated this morning. He does not have any complaints. No acute events overnight reported by nursing staff. Objective - Vital Signs Vital signs: Vital Signs Temp 97.6 F 07/27/20 08:00 Pulse 64 07/27/20 10:00 Resp 22 07/27/20 10:00 BP 117/80 07/27/20 10:00 Pulse Ox 95 07/27/20 10:00 Intake & Output 07/26/20 07/27/20 07/27/20 18:59 06:59 18:59 Intake Total 350 446.008 Output Total 235 310 Balance 115 136.008 Weight 71 kg Intake: IV 350 400 Sodium Chloride 0.9% 1, 100 400 000 ml @ 100 mls/hr IV . Q10H7M ONE with Mvi, Adult No.4 with Vit K 10 ml with Thiamine 100 mg with Folic Acid 1 mg Rx#: [id number] Sodium Chloride 0.9% 1, 250 000 ml @ 125 mls/hr IV . Q8H [facility] Rx#:[id number] Intake, IV Titration 46.008 Amount propofoL 1,000 mg In 46.008 Empty Bag 1 bag @ Titrate IV .Q0M ADRIANA Rx#: [id number] Output: Urine 235 310 Other: Voiding Method Indwelling Catheter Indwelling Catheter - Exam General: The patient is awake and alert, in no distress Eye: there is normal conjunctiva bilaterally. Neck: The neck is supple, there is no JVD. Cardiovascular: Normal S1-S2, no S3-S4, no murmurs. Respiratory: Lungs clear to auscultation bilaterally Gastrointestinal: Abdomen is soft, nontender Musculoskeletal: There is no pedal edema. Neurological:. Speech is normal. Skin: Skin is warm and dry - Labs CBC & Chem 7: 07/27/20 05:15 07/27/20 05:15 Labs: Abnormal Lab Results - Last 24 Hours (Table) 07/26/20 07/26/20 07/27/20 Range/Units 23:40 23:40 02:11 RBC (4.30-5.90) m/uL Hct (39.0-53.0) % ABG pH 7.26 L (7.35-7.45) ABG pCO2 57 H (35-45) mmHg ABG pO2 >400 H (83-108) mmHg ABG Total CO2 27 H (19-24) mmol/L ABG O2 Saturation 99.4 H (94-97) % Chloride 110 H (98-107) mmol/L Glucose 105 H (74-99) mg/dL POC Glucose (mg/dL) (75-99) mg/dL Calcium (8.4-10.2) mg/dL Total Protein (6.3-8.2) g/dL U Marijuana (THC) Screen Detected H (NotDetected) Serum Alcohol 244 H* mg/dL 07/27/20 07/27/20 07/27/20 Range/Units 03:35 05:15 05:15 RBC 4.02 L (4.30-5.90) m/uL Hct 38.9 L (39.0-53.0) % ABG pH (7.35-7.45) ABG pCO2 (35-45) mmHg ABG pO2 (83-108) mmHg ABG Total CO2 (19-24) mmol/L ABG O2 Saturation (94-97) % Chloride 112 H (98-107) mmol/L Glucose (74-99) mg/dL POC Glucose (mg/dL) 106 H (75-99) mg/dL Calcium 7.5 L (8.4-10.2) mg/dL Total Protein 5.3 L (6.3-8.2) g/dL U Marijuana (THC) Screen (NotDetected) Serum Alcohol mg/dL 07/27/20 Range/Units 08:34 RBC (4.30-5.90) m/uL Hct (39.0-53.0) % ABG pH (7.35-7.45) ABG pCO2 (35-45) mmHg ABG pO2 136 H (83-108) mmHg ABG Total CO2 26 H (19-24) mmol/L ABG O2 Saturation 98.4 H (94-97) % Chloride (98-107) mmol/L Glucose (74-99) mg/dL POC Glucose (mg/dL) (75-99) mg/dL Calcium (8.4-10.2) mg/dL Total Protein (6.3-8.2) g/dL U Marijuana (THC) Screen (NotDetected) Serum Alcohol mg/dL Microbiology - Last 24 Hours (Table) 07/27/20 03:58 Sputum Culture - Preliminary Sputum Assessment and Plan Assessment: 1. Toxo metabolic encephalopathy on presentation secondary to polysubstance abuse and alcohol intoxication. Now resolved. Mental status back to normal. 2. Acute hypoxic respiratory failure secondary to altered mental status and patient unable to protect his airway. Requiring intubation and mechanical ventilation overnight. Patient was extubated successfully on 07/27. 3. Alcohol intoxication, counseled extensively to quit. Continue aggressive IV fluid hydration and banana bag. WA protocol as needed. 4. Polysubstance abuse including ''Kratom'' and marijuana, counseled extensively to quit 5. Tobacco abuse: Counseled extensively to quit. Nicotine patch ordered. 6. GI and DVT prophylaxis with IV Pepcid and subcu heparin Today, I reviewed his medication list and lab work results. Chest x-ray showed no acute findings. Patient may be transferred out of the ICU to [facility]. Continue current management. Repeat lab work in the morning. residential program worker consult for resources. Anticipate discharge home tomorrow.
[2020-07-27] MEDS: NICOTINE 14MG/24HR PATCH TRANSDERM SCH (10:41)
--- NOTE | 2020-07-27 14:37 | P.CNPUL ---
History of Present Illness Consult date: 07/27/20 Reason for consult: other (Drug overdose and hypoxic respiratory failure) Chief complaint: Unresponsive History of present illness: This is a 30-year-old white male with history of polysubstance abuse, brought in by EMS after an overdose. Supposedly the patient takes kratom, and had previous history of multiple substance abuse. Apparently his father picked him up outside a [employer] after the staff contacted him when the patient was found unconscious. EMS found the patient minimally responsive and as soon as he arrived to the emergency room, patient was intubated placed on mechanical ventilation, and I was asked to see him on consultation. Overnight the patient was placed on a small dose of propofol, and this was discontinued early this morning. Upon my evaluation, the patient was arousable, following simple instructions, and I recommended a short trial of pressure support and CPAP, then proceeded to extubating the patient within half an hour. Chest x-ray was unremarkable. Labs this morning were noted to be normal including relatively normal ABG normal electrolytes normal CBC. Drug screen from admission was basically unremarkable except positive for marijuana, and his serum alcohol was 244. Rest of the drug screen was unremarkable. Review of Systems ROS unobtainable: due to endotracheal tube Past Medical History Past Medical History: Seizure Disorder Additional Past Medical History / Comment(s): cardiac arrhythmia status post cardiac ablation in 2011 History of Any Multi-Drug Resistant Organisms: None Reported Past Surgical History: Hernia Repair Additional Past Surgical History / Comment(s): loop recorder placed, heart catheterization, cardiac ablation with Dr. Bhandari in 2012, extraction of impacted teeth, ORIF right hand third metacarpal phalangeal joint fracture. Past Anesthesia/Blood Transfusion Reactions: No Reported Reaction Past Psychological History: ADD/ADHD, Anxiety, Depression Past Alcohol Use History: Daily Past Drug Use History: None Reported - Past Family History Father Additional Family Medical History / Comment(s): father is 53 years of age and has basal cell skin cancer. Mother Additional Family Medical History / Comment(s): mother is 51 years of age and has problems with anxiety and chronic back pain. Brother(s) Additional Family Medical History / Comment(s): patient has 1 brother and 1 sister with no major medical problems. Medications and Allergies Home Medications Medication Instructions Recorded Confirmed Type Butalb/Asprin/Caff 50-325-40Mg 1 cap PO TID PRN 11/12/19 07/27/20 History [Fiorinal 50-325-40 MG] Gabapentin [Neurontin] 300 mg PO TID 07/27/20 07/27/20 History Gabapentin [Neurontin] 400 mg PO TID 07/27/20 07/27/20 History Gabapentin [Neurontin] 600 mg PO TID 07/27/20 07/27/20 History Omeprazole [PriLOSEC] 20 mg PO DAILY 07/27/20 07/27/20 History Allergies Allergy/AdvReac Type Severity Reaction Status Date / Time dextroamphetamine sulfate AdvReac Hallucinati Verified 11/12/19 13:35 [From Dexedrine] ons Physical Exam Vitals: Vital Signs Temp Pulse Resp BP Pulse Ox 07/27/20 10:00 64 22 117/80 95 07/27/20 09:00 73 20 113/76 96 07/27/20 08:30 80 21 99/68 07/27/20 08:00 97.6 F 73 20 96/66 97 07/27/20 07:30 74 20 101/68 97 07/27/20 07:00 75 20 103/71 97 07/27/20 06:30 71 20 91/63 97 07/27/20 06:00 73 20 97/61 97 07/27/20 05:30 73 20 94/65 97 07/27/20 05:00 97.3 F L 74 20 94/66 97 07/27/20 04:30 70 20 100/70 97 07/27/20 04:00 94.5 F L 66 20 117/86 99 07/27/20 03:50 64 20 100 07/27/20 03:40 94.4 F L 60 20 140/109 100 07/27/20 02:15 72 16 104/74 100 07/27/20 01:26 80 07/27/20 01:04 77 16 100/70 93 L 07/27/20 00:27 82 18 117/73 92 L 07/26/20 23:37 14 07/26/20 23:33 97.4 F L 88 14 123/88 98 Intake and Output 07/26/20 07/27/20 07/27/20 22:59 06:59 14:59 Intake Total 350 846.008 Output Total 235 1110 Balance 115 -263.992 Intake: IV 350 800 Sodium Chloride 0.9% 1, 100 800 000 ml @ 100 mls/hr IV . Q10H7M ONE with Mvi, Adult No.4 with Vit K 10 ml with Thiamine 100 mg with Folic Acid 1 mg Rx#: [id number] Sodium Chloride 0.9% 1, 250 000 ml @ 125 mls/hr IV . Q8H [facility] Rx#:[id number] Intake, IV Titration 46.008 Amount propofoL 1,000 mg In 46.008 Empty Bag 1 bag @ Titrate IV .Q0M [facility] Rx#: [id number] Output: Urine 235 1110 Other: Voiding Method Indwelling Catheter Indwelling Catheter Weight 71 kg Physical Exam: Revealed a 30-year-old white male on mechanical ventilation, arousable, follows simple instructions, in no distress. Head: Atraumatic, normocephalic. Endotracheal tube and orogastric tubes are intact. HEENT:[Neck is supple.] [No neck masses.] [No thyromegaly.] [No JVD.] Chest: [Clear throughout, no crackles, no rhonchi, no wheezes.] Cardiac Exam: [Normal S1 and S2, no S3 gallop, no murmur.] Abdomen: [Soft, nontender, no megaly, no rebound, no guarding, normal bowel sounds.] Extremities: [No clubbing, no edema, no cyanosis.] Neurological Exam: [No focal neurologic deficit.] Patient is arousable, follows simple instructions while on mechanical ventilation. Psychiatric: Blunted mood and affect. Seems to comprehend and follows instructions. Lymphatics: No lymphadenopathy. Results - Laboratory Findings CBC and BMP: 07/27/20 05:15 07/27/20 05:15 ABG ABG pH 7.38 (7.35-7.45) 07/27/20 08:34 ABG pCO2 42 mmHg (35-45) 07/27/20 08:34 ABG pO2 136 mmHg (83-108) H 07/27/20 08:34 ABG O2 Saturation 98.4 % (94-97) H 07/27/20 08:34 Abnormal lab findings: Abnormal Labs 07/26/20 07/26/20 07/27/20 23:40 23:40 02:11 RBC Hct ABG pH 7.26 L ABG pCO2 57 H ABG pO2 >400 H ABG Total CO2 27 H ABG O2 Saturation 99.4 H Chloride 110 H Glucose 105 H POC Glucose (mg/dL) Calcium Total Protein U Marijuana (THC) Screen Detected H Serum Alcohol 244 H* 07/27/20 07/27/20 07/27/20 03:35 05:15 05:15 RBC 4.02 L Hct 38.9 L ABG pH ABG pCO2 ABG pO2 ABG Total CO2 ABG O2 Saturation Chloride 112 H Glucose POC Glucose (mg/dL) 106 H Calcium 7.5 L Total Protein 5.3 L U Marijuana (THC) Screen Serum Alcohol 07/27/20 08:34 RBC Hct ABG pH ABG pCO2 ABG pO2 136 H ABG Total CO2 26 H ABG O2 Saturation 98.4 H Chloride Glucose POC Glucose (mg/dL) Calcium Total Protein U Marijuana (THC) Screen Serum Alcohol - Diagnostic Findings Chest x-ray: image reviewed (Unremarkable chest x-ray.) Assessment and Plan Assessment: Impression: Acute hypoxic respiratory failure secondary to combination of kratom overdose and alcohol intoxication. Acute mental status changes secondary to above. History of polysubstance abuse. Recommendation: Patient was weaned with a pressure support mode of mechanical ventilation with CPAP, and extubated uneventfully. We'll continue to monitor the patient in the ICU. Will ask for psychiatric consultation. Patient will be monitored for any potential withdrawal symptoms. We will continue to follow. Time with Patient: Greater than 30
--- NOTE | 2020-07-27 16:52 | P.CN ---
Psychiatric Consult - . Consult date: 07/27/20 Consult:: 07/27/20 16:34 Diagnosis major depression single episode moderate Rule out bipolar 2 Alcohol use disorder 07/27/20 16:35 ID this occasion 30-year-old recently male father of a 5-month-old son Reason for hospitalization: The patient admits to abusing alcohol and increasing his use more recently due to the stress in his life. Stress: The patient is having to work 60 hour weeks, he lives alone, his significant other left him and went to all in [place] which is too far for him to visit and took their 5-month-old son with her. He was drinking with friends and one of them brought Xanax. He says that he has used a combination in the past and it just calms him down so he did not think he would be dangerous. This time the combination was almost lethal and he had to be brought into the hospital and intubated. Reportedly, the patient's father picked him up outside of a [employer] after the staff contacted him when the patient was found unconscious. He subsequently called EMS when he found his son minimally responsive. He told the ED staff that the patient had been drinking heavily and using Kratomover the past 3 months after he split from his and one child. He reported the patient has been using Kratom (OTC Supplement) known to have stimulant properties with sedating effects at higher doses. In the emergency room, the patient was lethargic with an EtOH level of 244. He was subsequently intubated. He is sense at the intubation tube removed and is able to talk. I interviewed him in his room Past psychiatric history:. The patient was admitted to [facility] on 03/05/2015 for a very similar situation he had taken 18 tramadol pills and suffered a grand mal seizure. Just like now he said that he did not intend to kill himself but admitted that what he had done was reckless he also talked about mood swings depressed mood and what sounded almost like hypomanic episodes with decreased need for sleep and increased energy increased irritability and rapid speech. He denies any hallucinations or delusional thoughts nor in the past and his hospitalization on 03/05/2015 was his first psychiatric hospitalization. He has been diagnosed with ADHD and taken stimulants such as Adderall and Ritalin in the past. He was diagnosed with bipolar 2 at that time and sent home on Depakote 1000 mg and told that he needs to have alcohol and drugs who was 30 his moods up. He did not continue with the Depakote and says that his moods have been stable until the breakup of his relationship. Social history: The patient does have a history of drug use alcohol use in trouble with the law. He is a second of 3 children born to his parents who are alive and together and he says he is "the black sheep" has an older sister and younger brother are doing well as are his parents who are alive and together he has been in a relationship with woman for 3 years and they have a son who is 1-month-old. They have been for 5 months. He finished high school and enjoyed it was positive he had friends and played football but even back in high school he was using marijuana and other substances. He says he took to drinking alcohol heavily from 2011 2016 admission get clean for 2 years and re lapsed again in 2019. He says he does have some friends that don't drink. He says he has been smoking a lot more lately Mental status exam: Patient is alert oriented to person place time and circum stances good eye contact reasonable response times serious affect he could remember 3 of 3 objects after 3 minutes he can name the presidents back to the elder [place]. He can name all the [place]. When asked him how cats and snakes were alike he said that they don't like people in any labs but could not come up with other examples. He could spell world backward. He is intelligent and abstract. He says that he has a plan to go stay with his parents stay away from friends that use drugs. He says he is willing to get into rehab in regards to substance use and realizes this is the second time he almost from miscalculation of substance use. He denies feeling suicidal and says that again this near- situation was not a desire to . He denies any hallucinations does not evidence any delusions. Assessment: It is impossible to assess the exact nature of his psychiatric disorder until he stays clean but the fact that he has been able to stay off of medications for 6 years suggest that is probably not bipolar 2 but that a lot of his symptoms are due to substance use. And ADHD can look a little like bipolar at times. We need to keep an open mind that is possibly bipolar 2. I asked him if he thought he needed some medicines to deal with the depression and he felt that it might be useful. Suggestion: He would probably be good for him to start on some Cymbalta and get into a rehab program and then reanalyze whether he needs something like Depakote. I think if he can stay off the substances and get some treatment for her focus and concentration and calming himself down by taking the Cymbalta that we'll be in. I do not think he needs to be transferred to the inpatient unit as he has not an active danger to himself but that he should not leave the hospital until he has a referral for rehab.
[2020-07-28 05:34] VITALS: BP 147/93; PULSE 67; RESP 17; TEMP 98.1
[2020-07-28 06:02] LABS: Basophils % (A) 0 %; Eosinophils # (A) 0.2 k/uL (0-0.7); Eosinophils % (A) 2 %; HCT 44.6 % (39.0-53.0); HGB 15.1 gm/dL (13.0-17.5); Lymphocytes # (A) 1.6 k/uL (1.0-4.8); Lymphocytes % (A) 14 %; MCH 32.3 pg (25.0-35.0); MCHC 33.9 g/dL (31.0-37.0); MCV 95.5 fL (80.0-100.0); Mean Platelet Volume 7.3; Monocytes # (A) 0.7 k/uL (0-1.0); Monocytes % (A) 6 %; Neutrophils % (A) 78 %; Platelet Count 171 k/uL (150-450); RBC 4.67 m/uL (4.30-5.90); RDW 13.7 % (11.5-15.5); WBC 11.5 k/uL (3.8-10.6)
[2020-07-28 06:10] LABS: African American GFR (CKD) >90 (>60 ml/min/1.73 sqM); Anion Gap 1 mmol/L; Blood Urea Nitrogen 14 mg/dL (9-20); Calcium 8.8 mg/dL (8.4-10.2); Carbon Dioxide 29 mmol/L (22-30); Chloride 105 mmol/L (98-107); Glucose 109 mg/dL (74-99); Non-African American GFR(CKD) >90 (>60 ml/min/1.73 sqM); Potassium 4.9 mmol/L (3.5-5.1); Sodium 135 mmol/L (137-145)
[2020-07-28] MEDS: NICOTINE 14MG/24HR PATCH TRANSDERM SCH (07:43)
[2020-07-28] MEDS: FAMOTIDINE 20 MG/2 ML VIAL IV SCH (07:43)
[2020-07-28] MEDS: HEPARIN SODIUM,PORCINE 5,000 UNIT/ML 1 ML VIAL SQ SCH (07:43)
--- NOTE | 2020-07-28 10:11 | P.DS ---
Providers Date of admission: 07/27/20 01:21 Expected date of discharge: 07/28/20 Attending physician: John Soriano MD Consults: 07/27/20 01:21 Consult Physician Routine Consulting Provider: Lydia Stark Consult Reason/Comments: overdose Do you want consulting provider notified?: Yes, Notify in am Consult Physician Stat Consulting Provider: Holland Steven Consult Reason/Comments: ICU Do you want consulting provider notified?: Already Contacted Primary care physician: Stated None Hospital Course: This is a 30-year-old male with past medical history of polysubstance abuse who presented to the emergency room via EMS for overdose. Patient was evaluated in the ER and admitted to the hospital for further management of his medical problems noted below. 1. Toxo metabolic encephalopathy on presentation secondary to polysubstance abuse and alcohol intoxication. Now resolved. Mental status back to normal. 2. Acute hypoxic respiratory failure secondary to altered mental status and patient unable to protect his airway. Requiring intubation and mechanical ventilation overnight. Patient was extubated successfully on 07/27. 3. Alcohol intoxication, counseled extensively to quit. Treated with aggressive IV fluid hydration and banana bag 4. Polysubstance abuse including ''Kratom'' and marijuana, counseled extensively to quit 5. Tobacco abuse: Counseled extensively to quit. Nicotine patch ordered. Patient's overall condition improved significantly. He was seen and evaluated by psychiatry. He was cleared for discharge home. He has some evidence of underlying depression. He will be started on Cymbalta 20 mg daily. He will follow-up in the outpatient setting as directed. Patient will be discharged home in a stable condition. For further details about this hospitalization please refer to the electronic chart. Time spent on discharge > 30 minutes including counseling and coordination of Patient Condition at Discharge: Stable Plan - Discharge Summary New Discharge Prescriptions: New DULoxetine HCL [Cymbalta] 20 mg PO DAILY #30 capsule. Nicotine 14Mg/24Hr Patch [Habitrol] 1 patch TRANSDERM DAILY #30 patch Continue Gabapentin [Neurontin] 300 mg PO TID Omeprazole [PriLOSEC] 20 mg PO DAILY Discontinued Butalb/Asprin/Caff 50-325-40Mg [Fiorinal 50-325-40 MG] 1 cap PO TID PRN PRN Reason: Headache Gabapentin [Neurontin] 400 mg PO TID Gabapentin [Neurontin] 600 mg PO TID Discharge Medication List Gabapentin [Neurontin] 300 mg PO TID 07/27/20 [History] Omeprazole [PriLOSEC] 20 mg PO DAILY 07/27/20 [History] DULoxetine HCL [Cymbalta] 20 mg PO DAILY #30 capsule. 07/28/20 [Rx] Nicotine 14Mg/24Hr Patch [Habitrol] 1 patch TRANSDERM DAILY #30 patch 07/28/20 [Rx] Follow up Appointment(s)/Referral(s): None,Stated [Primary Care Provider] - 1-2 days Discharge Disposition: HOME SELF-CARE
== END 2020-07-28 11:28 | disposition home or self-care (01) | DRG 917 ==
LOC: EC 23:32 → 2SICU 07-27 01:21 → 6NMEDSUR 07-27 21:10
PROVIDERS: ADMIT Internal Medicine; ATTEND Internal Medicine
PROC: 0BH17EZ Insertion of Endotracheal Airway into Trachea, Via Natural or Artificial Opening (ICD-10-PCS; principal; 2020-07-27)
PROC: 5A1935Z Respiratory Ventilation, Less than 24 Consecutive Hours (ICD-10-PCS; 2020-07-27)
DX: T43.8X1A Poisoning by other psychotropic drugs, accidental (unintentional), initial encounter (principal); J96.01 Acute respiratory failure with hypoxia; G92 Toxic encephalopathy; F10.120 Alcohol abuse with intoxication, uncomplicated; G40.909 Epilepsy, unspecified, not intractable, without status epilepticus; F90.9 Attention-deficit hyperactivity disorder, unspecified type; F41.9 Anxiety disorder, unspecified; F32.9 Major depressive disorder, single episode, unspecified; R40.2362 Coma scale, best motor response, obeys commands, at arrival to emergency department; R40.2142 Coma scale, eyes open, spontaneous, at arrival to emergency department; R40.2252 Coma scale, best verbal response, oriented, at arrival to emergency department; F17.210 Nicotine dependence, cigarettes, uncomplicated; Y90.8 Blood alcohol level of 240 mg/100 ml or more; Z71.6 Tobacco abuse counseling; Z79.899 Other long term (current) drug therapy; Z98.890 Other specified postprocedural states; Z87.81 Personal history of (healed) traumatic fracture; Z88.8 Allergy status to other drugs, medicaments and biological substances; Z80.8 Family history of malignant neoplasm of other organs or systems; Z81.8 Family history of other mental and behavioral disorders
CPT/HCPCS: 31500; 36415; 36600; 71045; 80048; 80053; 80306; 80320; 80329; 82805; 83520; 83735; 85025; 87070; 87077; 87186; 87205; 93005; 94002; 94640; 96361; 96374; 99291